=== PATIENT | female | born 1980 | race Caucasian/White ===

== ENCOUNTER 2017-06-09 15:28 | Emergency (ER) | payer OTHER ==
[2017-06-09 15:42] VITALS: BP 129/87; PULSE 103; RESP 18; O2SAT 98
--- NOTE | 2017-06-09 16:09 | ED.REPORT ---
HPI-Headache Date of Service Jun 09, 2017 ED Provider: Dm Aguilera DO Pt is a 37 y/o female w/ no disclosed medical history presenting to the ED c/o worsening bilateral retroorbital headache onset 2 days ago. She experiences headaches about once each month and denies migraines and states she has not been evaluated for headaches in the past and has not had a head CT previously ( review of old records obtained from an outside hospital recently after head CT taken today indicates she HAS had a head CT scan, last 04/17/17 which was negative). Today, her headache worsened suddenly just prior to arrival and is the worst she has ever experienced. Pt denies vomiting, focal numbness/weakness , fever. She denies being prescribed any medications or having any history of medical problems (although there is a prescription monitoring program sheet that indicates she has 9 different prescribers (all but 1 being located in [place]) and is prescribed multiple medications including controlled substances such as diazepam, Zolpidem, hydrocodone, and oxycodone regularly.) Her last ED visit at [facility] in [place] was on 04/17/17 at which time she presented with complaints of headache and obtained a head CT scan which was negative. At that time she requested narcotics for her headache and after this being declined she left without completion of service. Nursing Notes Stated Complaint: MIGRAINE Chief Complaint: Headache Nursing Notes Reviewed: Yes Allergies: Coded Allergies: No Known Allergies (Unverified , 06/09/17) General Time Seen by MD: 16:04 Chief Complaint Migraine headache Hx Obtained From: Patient Arrived By: Walk-in Sudden in Onset?: No Onset Occurred: 2 days ago Symptom Duration: Since onset Location: : Generalized Quality: Aching Severity: Current: Moderate Severity: Maximum: Moderate Recent Healthcare: No recent doctor visit, No recent hospitalization Similar Sx Previous: Yes Past Medical History Past Medical History Notes: The patient denies having any of the below medical problems or being on any medications although the below problems were found on review of records from an outside hospital system. Past Medical History Anxiety Depression Diabetes insipidus GERD Hypertension IBS Past Surgical History Breast reduction Endoscopy Hysterectomy Rotator cuff repair Shoulder Smoking History Unknown if Ever Smoker Social History Alcohol Use: Denies alcohol use Drug Use: Denies drug use Ambulatory Status Independent Review of Systems Constitutional: Denies: Fever Eyes: Reports: Photophobia GI: Reports: Nausea, Denies: Vomiting Neurologic: Reports: Headache, Denies: Focal weakness, Numbness Complete sys rev & neg: except as marked. Physical Exam Initial Vital Signs Vital Signs (First) Date Time Temp Pulse Resp B/P Pulse Ox O2 Delivery O2 Flow Rate FiO2 06/09/17 15:42 36.6 103 18 129/87 98 Room Air Initial VS: Reviewed, Vital signs abnormal Respiratory: Breath sounds normal, Clear to auscultation, No respiratory distress Cardiovascular: Regular rate & rhythm, Heart sounds normal, Intact distal pulses Abdomen / GI: Soft, Non-tender Extremities: Vascular intact, Neuro intact, No swelling Skin: Warm, Dry, No cyanosis Psychiatric: Mood/affect normal, Behavior normal, Normal thought content General/Constitutional: Awake, Alert, No acute distress, Cooperative, Not toxic appearing Appearance / Presentation: Positive: Uncomfortable Head / Eyes: Atraumatic, Normocephalic, PERRL, EOMI Neck: Supple, No meningismus, Full range of motion Neurologic: Oriented X3, Speech NL, No motor deficits, No sensory deficits, CN II - XII intact, Cerebellar NL, Memory NL Interpretation & Diagnostics Lab Results Interpretation Result Diagram: 06/09/17 1607 06/09/17 1607 Test 06/09/17 16:07 White Blood Count 11.3th/mm3 (3.8-10.1) Red Blood Count 4.82mil/mm3 (3.90-5.20) Hemoglobin 14.4g/dL (12.0-15.6) Hematocrit 41.6% (35.0-46.0) Mean Corpuscular Volume 86.3fL (81-100) Mean Corpuscular Hemoglobin 29.9pg (27.0-35.0) Mean Corpuscular Hemoglobin Concent 34.6% (32.0-37.0) Red Cell Distribution Width 13.5% (12.3-15.4) Platelet Count 269bil/L (150-400) Neutrophils (%) (Auto) 60.1% (40-74) Lymphocytes (%) (Auto) 32.0% (14-46) Monocytes (%) (Auto) 5.6% (4-12) Eosinophils (%) (Auto) 1.7% (0-5) Basophils (%) (Auto) 0.4% (0-3) Sodium Level 136mEq/L (134-144) Potassium Level 3.2mEq/L (3.5-5.2) Chloride Level 96mEq/L (97-108) Carbon Dioxide Level 19mmol/L (18-29) Blood Urea Nitrogen 9mg/dL (6-20) Creatinine 0.69mg/dL (0.57-1.00) Estimat Glomerular Filtration Rate 136mL/min (>59) Glucose Level 196mg/dL (60-99) Calcium Level 9.6mg/dL (8.5-10.1) Hold Schwab Top Tube Received (Received) Alcohols < 10mg/dL (0-10) CT Head Interpretation IMPRESSION: 1. No acute intracranial abnormality. Dictated by: Magno Donahue M.D. on 06/09/2017 at 17:22 Approved by: Magno Donahue M.D. on 06/09/2017 at 17:22 Study: Head CT no contrast Interpretation / Wet Read by: Interpret - Radiologist Re-Eval/Medical Decision Med Decision/Clinical Course Patient presents complaining of headache and appears to be in distress. She initially adamantly denies any medical history, prescription medications, prior history of severe headaches, or prior workup for headache etiology. Pharmacy query was obtained and it appears the patient has had multiple providers in the past and is also under medical treatment for high cholesterol, hypertension diabetes and receives frequent narcotic prescriptions. Records were obtained from [facility] less than 2 months ago which show a similar workup at a nearby hospital. At that time the patient was on a pain contract and left AGAINST MEDICAL ADVICE where no narcotics were prescribed. Ultimately her head CT is normal within 6 hours of onset of severe headache, this along with the previous medical history of recurrent headaches with the same distribution and symptoms suggestive this is likely migrainous in nature rather than a catastrophic vascular phenomenon. She is feeling somewhat improved after medications in the ER. She will be given an additional dose of Toradol. Return and follow-up precautions given. Re-Evaluation/Progress #1: Time of Eval: 16:48 Re-Evaluation/Progress Note: Pt rechecked. I brought up all of the prescribed medications that are visible to me. She continues to deny taking any medications or having any medical problems. Re-Evaluation/Progress #2: Time of Eval: 17:30 Re-Evaluation/Progress Note: Pt rechecked. She is feeling better. After obtaining records indicating she is on a pain contract and that she has broken the contract in the past she remains saying that she is not prescribed any medications and has no medical problems. She is not requesting narcotics at this time. Discussed negative CT head results. Informed pt of plan for discharge. Pt understands and agrees with plan for discharge. F/U instructions and RTER warnings given. All questions addressed. Counseled Regarding: Diagnosis, Lab results, Need for follow-up, When/why to return to ED Discharge & Departure Impression: Primary Impression: Migraine Migraine type: unspecified Status migrainosus presence: without status migrainosus Intractability: not intractable Qualified Code: G43.909 - Migraine, unspecified, not intractable, without status migrainosus Disposition: Home Discharge Condition All VS Reviewed: Yes Condition: Stable Patient Instructions: Migraine Headache (ED) Additional Instructions: While in the ER you were treated for a headache. You received a head CT which was normal. You also received medications for headache. Follow-up with your regular doctor as needed for further medical care. The ER is always available for any emergencies. Scribe Attestation Portions of this note were transcribed by Alexander Torres. I, Dr. Aguilera personally performed the history, physical exam and medical decision-making; I reviewed and confirmed the accuracy of the information in the transcribed note. Dm Aguilera DO Jun 09, 2017 16:09 ALEXANDER TORRES Jun 09, 2017 16:16
[2017-06-09] MEDS ORDERED: 0.9% Sodium Chloride 1,000 ML IV ONE (16:22)
[2017-06-09] MEDS ORDERED: ProchlorPERazine 5 mg/mL 2 mL Inj IVPUSH ONE (16:25)
[2017-06-09 16:30] LABS: BASOPHILS % (AUTO) 0.4 % (0-3); EOSINOPHILS % (AUTO) 1.7 % (0-5); MONOCYTES % (AUTO) 5.6 % (4-12); Mean Corpuscular Hemoglobin 29.9 pg (27.0-35.0); Mean Corpuscular Volume 86.3 fL (81-100); NEUTROPHILS % (AUTO) 60.1 % (40-74); Platelet Count 269 bil/L (150-400)
--- NOTE | 2017-06-09 17:24 | DRSVH ---
PROCEDURE: CT BRAIN WITHOUT CONTRAST ([id number]) INDICATIONS: headache TECHNIQUE: Noncontrast 4.5 mm thick angled axial sections acquired from the foramen magnum to the vertex, with c oronal reformats. COMPARISON: None. FINDINGS: Image quality: Excellent. CSF spaces: Basal cisterns are patent. No extra-axial fluid collections. Ventricles are normal in size and shape. Brain: No midline shift. No intracranial masses or hemorrhage. Kate-white matter interface is norm al. Skull and face: Calvarium and visualized facial bones are intact, without suspicious lesions. Sinuses: Visualized sinuses and mastoids are clear. IMPRESSION: 1. No acute intracranial abnormality. Dictated by: Magno Donahue M.D. on 06/09/2017 at 17:22 Approved by: Magno Donahue M.D. on 06/09/2017 at 17:22
[2017-06-09 17:50] VITALS: BP 130/83; PULSE 88; RESP 20; O2SAT 98
== END 2017-06-09 17:50 | disposition home or self-care (01) ==
LOC: SED 15:28
DX: G43.909 Migraine, unspecified, not intractable, without status migrainosus (principal); I10 Essential (primary) hypertension; F41.8 Other specified anxiety disorders; K21.9 Gastro-esophageal reflux disease without esophagitis; E23.2 Diabetes insipidus; Z90.710 Acquired absence of both cervix and uterus; Z98.890 Other specified postprocedural states
CPT/HCPCS: 36415; 70450; 80048; 85025; 96361; 96374; 96375; 99285; G0480; J0780; J1200; J1885; J7030